=== PATIENT | male | born 1965 | race Hispanic/Latino ===

== ENCOUNTER → 2017-12-31 | Day surgery (SDC) | payer OTHER ==
[~2017-12-31] MED LIST: LEVOTHYROXINE175 MCG PO; LIDOCAINE HCL 2% LOCAL INJ 5 ML SDV VIAL INJ ONE; LOSARTAN-HCTZ1 EACH PO; METFORMIN HCL1000 MG PO; MIDAZOLAM HCL 2 MG/2 ML VIAL ONE; PIOGLITAZONE15 MG PO; PROPOFOL IV EMULSION 10 MG/ML 20 ML VIAL ONE; URSODIOL300 MG PO
== END | disposition home or self-care (01) ==
LOC: OR 05:17
PROVIDERS: ATTEND Internal Medicine Gastroenterology
DX: K74.69 Other cirrhosis of liver (principal); K29.50 Unspecified chronic gastritis without bleeding; K76.6 Portal hypertension; E66.9 Obesity, unspecified; I10 Essential (primary) hypertension; G47.33 Obstructive sleep apnea (adult) (pediatric); E11.9 Type 2 diabetes mellitus without complications; E03.9 Hypothyroidism, unspecified; Z01.810 Encounter for preprocedural cardiovascular examination; Z68.37 Body mass index [BMI] 37.0-37.9, adult
CPT/HCPCS: 36415; 43239; 82948; 93005; J2001; J2250

== ENCOUNTER → 2018-10-22 | Outpatient (CLI) | payer OTHER ==
[~2018-10-22] MED LIST changes: -LIDOCAINE HCL 2% LOCAL INJ 5 ML SDV VIAL INJ ONE; -MIDAZOLAM HCL 2 MG/2 ML VIAL ONE; -PROPOFOL IV EMULSION 10 MG/ML 20 ML VIAL ONE
--- NOTE | 2018-10-22 10:08 | Diagnostic Imaging Report ---
EXAM: US ABDOMEN COMPLETE INDICATION: Fatty liver, cirrhosis. COMPARISON: None TECHNIQUE: Transverse and longitudinal archer scale and color doppler sonographic images of the upper abdomen were obtained. FINDINGS: LIVER Measures 17.7 cm in the right midclavicular line. Normal echogenicity of the liver with slightly irregular contour, no masses. SPLEEN 11.5 cm in maximum diameter. Normal echogenicity, no masses. GALLBLADDER No gallbladder wall thickening, distension, stone, or pericholecystic fluid. Negative reported sonographic Buchanan's sign. BILE DUCTS No intra nor extra-hepatic biliary dilation. Common bile duct measures 0.3cm PANCREAS: Visualized portions are normal. RIGHT KIDNEY: 11.4 cm Echogenicity: Normal Collecting System: No hydronephrosis Stones: None Cyst/Mass: None LEFT KIDNEY: 13.5 cm Echogenicity: Normal Collecting System: No hydronephrosis Stones: None Cyst/Mass: None VESSELS: Aorta: Visualized portions are within normal size limits Inferior Vena Cava: Visualized portions are normal Main Portal Vein: 1.2 cm, normal size with hepatopetal flow. FREE FLUID: None IMPRESSION: Hepatomegaly with slightly irregular liver contour, suggestive of cirrhosis. Signed by: Dr. Nadira Marin MD on 10/22/2018 10:04 AM
== END ==
LOC: US 08:25
PROVIDERS: ATTEND Internal Medicine Gastroenterology
DX: K74.69 Other cirrhosis of liver (principal); K76.0 Fatty (change of) liver, not elsewhere classified; E11.9 Type 2 diabetes mellitus without complications; I10 Essential (primary) hypertension; E66.9 Obesity, unspecified; Z71.3 Dietary counseling and surveillance
CPT/HCPCS: 76700

== ENCOUNTER 2021-11-30 00:54 | Emergency (ER) | payer OTHER ==
[~2021-11-30] VITALS: Ht 157.5 cm; Wt 95.3 kg
== END 2021-11-30 03:12 | disposition home or self-care (01) ==
LOC: ER 01:01
DX: S00.83XA Contusion of other part of head, initial encounter (principal); W01.0XXA Fall on same level from slipping, tripping and stumbling without subsequent striking against object, initial encounter; Y93.68 Activity, volleyball (beach) (court); Y92.89 Other specified places as the place of occurrence of the external cause; I10 Essential (primary) hypertension; E11.9 Type 2 diabetes mellitus without complications; E78.5 Hyperlipidemia, unspecified; E03.9 Hypothyroidism, unspecified
CPT/HCPCS: 70450; 72125; 99283